=== PATIENT | female | born 1945 ===

== ENCOUNTER 2022-12-01 06:32 | Day surgery (SDC) | payer OTHER ==
[~2022-12-01] VITALS: Ht 157.5 cm; Wt 73.4 kg
[~2022-12-01 06:32] MED LIST: LISINOPRIL-HCT1 EACH PO; LIVALO4 MG PO; PROBENECID-COL1 EACH PO
[2022-12-01] MEDS ORDERED: CLIMARA1 EACH (06:48)
[2022-12-01] MEDS ORDERED: MERIBIN5 MG PO (06:49)
[2022-12-01] MEDS ORDERED: TURMERIC538 MG PO (06:49)
== END 2022-12-01 08:35 | disposition home or self-care (01) ==
LOC: ORSCSDS 06:32
PROVIDERS: Student in an Organized Health Care Education/Training Program
PROC: 08RJ3JZ Replacement of Right Lens with Synthetic Substitute, Percutaneous Approach (ICD-10-PCS; principal; 2022-12-01 08:00)
DX: H25.13 Age-related nuclear cataract, bilateral (principal); I10 Essential (primary) hypertension; Z79.899 Other long term (current) drug therapy
CPT/HCPCS: J2250; J3010; J7040; V2632

== ENCOUNTER 2022-12-15 06:17 | Day surgery (SDC) | payer OTHER ==
[~2022-12-15] VITALS: Ht 157.5 cm; Wt 73.8 kg
[~2022-12-15 06:17] MED LIST changes: +CLIMARA1 EACH; +MERIBIN5 MG PO; +TURMERIC538 MG PO
--- NOTE | 2022-12-15 07:09 | NUR ---
12/15/22 0709 Fina Avila 1 DROP OF TETRACAINE ADMINISTERED TO THE L EYE AT 0707, PLEDGET PLACED IN L EYE AT 0708 BY [facility].[place] SUGGS.
== END 2022-12-15 08:33 | disposition home or self-care (01) ==
LOC: ORSCSDS 06:17
PROVIDERS: Student in an Organized Health Care Education/Training Program
PROC: 08RK3JZ Replacement of Left Lens with Synthetic Substitute, Percutaneous Approach (ICD-10-PCS; principal; 2022-12-15 08:00)
DX: H25.12 Age-related nuclear cataract, left eye (principal); Z96.1 Presence of intraocular lens; I10 Essential (primary) hypertension; Z79.899 Other long term (current) drug therapy
CPT/HCPCS: J2250; J3010; J7040; V2632